=== PATIENT | female | born 1940 | race Caucasian/White ===

== ENCOUNTER 2018-01-23 08:55 | Day surgery (SDC) | payer BC ==
[~2018-01-23] VITALS: Ht 162.6 cm; Wt 90.7 kg
[~2018-01-23 08:55] MED LIST: AMARYL4 MG PO; GLUCOPHAGE1000 MG PO; ZOCOR40 MG PO
[2018-01-23 09:45] LABS: HEMATOCRIT 39.9 % (36.0-46.0); HEMOGLOBIN 13.2 G/DL (11.9-15.5); MCH 28.4 PG (29.0-34.0); MCHC 33.1 G/DL (30.0-36.0); MCV 85.8 FL (83-99); PLATELET COUNT 324 K/uL (156-360); RBC DIS.WIDTH-CV 13.3 % (11.8-14.6); RBC DIS.WIDTH-SD 41.9 % (39-53); RED BLOOD COUNT 4.65 M/uL (3.80-5.20)
[2018-01-23 10:04] VITALS: BP 196/74
[2018-01-23 10:14] LABS: CHLORIDE 105 MEQ/L (99-109); CREATININE 0.7 MG/DL (0.6-1.3); GFR ESTIMATE (CALCULATED) > 59 mL/min/; GLUCOSE 152 mg/dL (70-99); POTASSIUM 3.8 MEQ/L (3.7-5.4); SODIUM 142 MEQ/L (136-147); UREA NITROGEN (BUN) 14 mg/dL (9-23)
[2018-01-23 12:53] VITALS: BP 187/78
[2018-01-23 13:50] VITALS: BP 153/73
== END 2018-01-23 14:00 | disposition home or self-care (01) ==
LOC: SDC 08:55
PROVIDERS: Ophthalmology
DX: H35.372 Puckering of macula, left eye (principal); H35.342 Macular cyst, hole, or pseudohole, left eye; H33.312 Horseshoe tear of retina without detachment, left eye; I10 Essential (primary) hypertension; E78.5 Hyperlipidemia, unspecified; E11.9 Type 2 diabetes mellitus without complications; M81.0 Age-related osteoporosis without current pathological fracture; Z82.49 Family history of ischemic heart disease and other diseases of the circulatory system; Z83.3 Family history of diabetes mellitus; Z79.82 Long term (current) use of aspirin
CPT/HCPCS: 80048; 85027; J0690; J1100; J2405; J2795; J3300